=== PATIENT | male | born 1945 | race Caucasian/White ===

== ENCOUNTER 2020-09-27 08:27 | Outpatient (CLI) | payer MEDICARE, BC | END 2020-09-27 08:28 | disposition home or self-care (01) | LOC: CSHWCC 08:27 | PROVIDERS: ATTEND Nurse Practitioner Family | DX: L98.492 Non-pressure chronic ulcer of skin of other sites with fat layer exposed (principal); K94.09 Other complications of colostomy; E78.01 Familial hypercholesterolemia; F32.9 Major depressive disorder, single episode, unspecified; L88 Pyoderma gangrenosum; I10 Essential (primary) hypertension; Z85.46 Personal history of malignant neoplasm of prostate | CPT/HCPCS: 11042; 97139; G0463; 99213 ==

== ENCOUNTER 2020-10-25 14:59 | Outpatient (CLI) | payer MEDICARE, BC | END 2020-10-25 15:00 | disposition home or self-care (01) | LOC: CSHWCC 14:59 | PROVIDERS: ATTEND Nurse Practitioner Family | DX: E78.01 Familial hypercholesterolemia (principal); F32.9 Major depressive disorder, single episode, unspecified; I10 Essential (primary) hypertension; K94.09 Other complications of colostomy; L88 Pyoderma gangrenosum; L98.492 Non-pressure chronic ulcer of skin of other sites with fat layer exposed; Z85.46 Personal history of malignant neoplasm of prostate | CPT/HCPCS: 97139; G0463; 99213 ==

== ENCOUNTER 2020-11-15 12:39 | Outpatient (CLI) | payer MEDICARE, BC | END 2020-11-15 12:40 | disposition home or self-care (01) | LOC: CSHWCC 12:39 | PROVIDERS: ATTEND Nurse Practitioner Family | DX: L98.492 Non-pressure chronic ulcer of skin of other sites with fat layer exposed (principal); F32.9 Major depressive disorder, single episode, unspecified; I10 Essential (primary) hypertension; L88 Pyoderma gangrenosum; K94.09 Other complications of colostomy; Z85.46 Personal history of malignant neoplasm of prostate | CPT/HCPCS: 99213; G0463 ==

== ENCOUNTER 2021-03-07 09:32 | Outpatient (CLI) | payer MEDICARE, BC | END 2021-03-07 09:33 | disposition home or self-care (01) | LOC: CSHWCC 09:32 | PROVIDERS: ATTEND Nurse Practitioner Family | DX: I87.2 Venous insufficiency (chronic) (peripheral) (principal); L98.492 Non-pressure chronic ulcer of skin of other sites with fat layer exposed; L88 Pyoderma gangrenosum; K94.09 Other complications of colostomy; F32.9 Major depressive disorder, single episode, unspecified; E78.01 Familial hypercholesterolemia; I10 Essential (primary) hypertension; W22.8XXS Striking against or struck by other objects, sequela; Z85.46 Personal history of malignant neoplasm of prostate | CPT/HCPCS: 99213; G0463 ==

== ENCOUNTER 2021-05-03 11:09 | Outpatient (CLI) | payer MEDICARE, BC | END 2021-05-03 11:10 | disposition home or self-care (01) | LOC: CSHWCC 11:09 | PROVIDERS: ATTEND Nurse Practitioner Family | DX: L98.492 Non-pressure chronic ulcer of skin of other sites with fat layer exposed (principal); I87.2 Venous insufficiency (chronic) (peripheral); K94.09 Other complications of colostomy; F32.9 Major depressive disorder, single episode, unspecified; L88 Pyoderma gangrenosum; E78.01 Familial hypercholesterolemia; W22.8XXD Striking against or struck by other objects, subsequent encounter; Z85.46 Personal history of malignant neoplasm of prostate | CPT/HCPCS: 97139; G0463; 99213 ==

== ENCOUNTER 2021-06-14 09:54 | Outpatient (CLI) | payer MEDICARE, BC | END 2021-06-14 09:55 | disposition home or self-care (01) | LOC: CSHWCC 09:54 | PROVIDERS: ATTEND Nurse Practitioner Family | DX: L98.492 Non-pressure chronic ulcer of skin of other sites with fat layer exposed (principal); E78.01 Familial hypercholesterolemia; F32.9 Major depressive disorder, single episode, unspecified; I10 Essential (primary) hypertension; I87.2 Venous insufficiency (chronic) (peripheral); K94.09 Other complications of colostomy; L88 Pyoderma gangrenosum; W22.8XXS Striking against or struck by other objects, sequela; Z85.46 Personal history of malignant neoplasm of prostate | CPT/HCPCS: 97139; G0463; 99213 ==

== ENCOUNTER 2021-07-26 14:19 | Outpatient (CLI) | payer MEDICARE, BC | END 2021-07-26 14:20 | disposition home or self-care (01) | LOC: CSHWCC 14:19 | PROVIDERS: ATTEND Nurse Practitioner Family | DX: L98.492 Non-pressure chronic ulcer of skin of other sites with fat layer exposed (principal); E78.01 Familial hypercholesterolemia; F32.9 Major depressive disorder, single episode, unspecified; I10 Essential (primary) hypertension; I87.2 Venous insufficiency (chronic) (peripheral); K94.09 Other complications of colostomy; L88 Pyoderma gangrenosum; W22.8XXS Striking against or struck by other objects, sequela; Z85.46 Personal history of malignant neoplasm of prostate ==

== ENCOUNTER 2021-09-04 13:02 | Outpatient (CLI) | payer MEDICARE, BC | END 2021-09-04 13:03 | disposition home or self-care (01) | LOC: CSHWCC 13:02 | PROVIDERS: ATTEND Nurse Practitioner Family | DX: K94.09 Other complications of colostomy (principal); L98.492 Non-pressure chronic ulcer of skin of other sites with fat layer exposed | CPT/HCPCS: 87070; 87077; 87186; 87205 ==

== ENCOUNTER 2021-10-18 21:53 | Emergency (ER) | payer MEDICARE, BC ==
[~2021-10-18 21:53] MED LIST: Iopamidol 300 61% 100 ML VIAL FS ONE
[2021-10-18 22:17] LABS: #Basophils 0.1 10x3/uL (0.0-0.2); #Eosinphils 0.3 10x3/uL (0.0-0.5); #Monocytes 0.6 10x3/uL (0.0-1.1); #Neutrophils 6.8 10x3/uL (1.5-8.4); %Basophils 0.7 % (0.0-2.0); %Eosinophils 2.5 % (0.0-6.0); %Lymphocytes 21.7 % (18.0-47.0); %Monocytes 6.4 % (0.0-10.0); %Neutrophils 68.3 % (40.0-75.0); Hemoglobin 11.1 g/dL (13.5-17.5); Mean Corpuscular HGB CONC 31.6 g/dL (32.0-36.0); Mean Corpuscular Hemoglobin 32.1 pg (27.0-33.0); Mean Corpuscular Volume 101.4 fl (81.2-95.1); Mean Platelet Volume 8.7 fl (7.4-10.4); Platelet Count 180 10x3/uL (150-450); RBC Distribution Width 14.2 % (11.5-14.5); Red Blood Cell (RBC) Count 3.46 10x6/uL (4.32-5.72)
[2021-10-18 22:27] LABS: PTT 26.3 sec (22.0-33.0); Prothrombin Time 10.7 sec (9.5-12.1)
[2021-10-18 22:29] LABS: ALT (SGPT) 20 U/L (8-55); AST (SGOT) 19 U/L (5-34); Albumin 4.1 g/dL (3.4-4.8); Alkaline Phosphatase 81 U/L (40-110); Anion Gap 13 mmol/L (10-20); BUN (Urea Nitrogen) 39 mg/dL (8.4-25.7); Bilirubin, Total 0.6 mg/dL (0.2-1.2); Calc. Creatinine Clearance 0 mL/min (70-130); Calcium 9.5 mg/dL (7.8-10.44); Carbon Dioxide 26 mmol/L (23-31); Chloride 106 mmol/L (98-107); Globulin 2.3 g/dL (2.4-3.5); Glucose 148 mg/dL (83-110); Protein, Total 6.4 g/dL (5.8-8.1); Sodium 141 mmol/L (136-145)
[2021-10-18] MEDS ORDERED: Silver Nitrate Application 1 EACH ONE (22:43)
[2021-10-18 23:40] LABS: Bilirubin Neg (Negative); Blood, Urine 10 (Negative); Clarity Clear (Clear); Glucose, Urine (Dipstick) Normal (Negative); Ketone, Urine Negative (Negative); Leukocyte Negative (Negative); Nitrite Negative (Negative); Protein, Urine (Dipstick) Negative (Neg-Trace); Urobilinogen Normal mg/dL (Less than 2)
[2021-10-18 23:55] LABS: Bacteria/HPF None Seen HPF (None Seen); RBC/HPF 0-3 HPF (0-3); Squamous Epithelial 0-3 HPF (0-3)
== END 2021-10-19 00:50 | disposition home or self-care (01) ==
LOC: CSHERS 21:53
DX: T83.83XA Hemorrhage due to genitourinary prosthetic devices, implants and grafts, initial encounter (principal); E78.5 Hyperlipidemia, unspecified; I10 Essential (primary) hypertension; Z79.899 Other long term (current) drug therapy
CPT/HCPCS: 74177; 80053; 81003; 81015; 85025; 85610; 85730; Q9967

== ENCOUNTER 2021-11-08 10:49 | Outpatient (CLI) | payer MEDICARE, BC | END 2021-11-08 10:50 | disposition home or self-care (01) | LOC: CSHWCC 10:49 | PROVIDERS: ATTEND Nurse Practitioner Family | DX: K94.09 Other complications of colostomy (principal); L98.492 Non-pressure chronic ulcer of skin of other sites with fat layer exposed | CPT/HCPCS: 97139; G0463; 99213 ==

== ENCOUNTER 2021-12-29 08:10 | Outpatient (CLI) | payer MEDICARE, BC | END 2021-12-29 08:11 | disposition home or self-care (01) | LOC: CSHWCC 08:10 | PROVIDERS: ATTEND Nurse Practitioner Family | DX: K94.09 Other complications of colostomy (principal); L98.492 Non-pressure chronic ulcer of skin of other sites with fat layer exposed | CPT/HCPCS: 87070; 87077; 87186; 87205; 97139; G0463; 99213 ==

== ENCOUNTER 2022-03-03 14:28 | Emergency (ER) | payer MEDICARE, BC ==
[2022-03-03] MEDS ORDERED: Ondansetron PF 4 MG/2 ML Vial ONE (15:19)
[2022-03-03] MEDS ORDERED: Morphine 2 MG/ML VIAL ONE (15:19)
[2022-03-03 15:47] LABS: #Basophils 0.1 10x3/uL (0.0-0.2); #Eosinphils 0.3 10x3/uL (0.0-0.5); #Monocytes 0.6 10x3/uL (0.0-1.1); #Neutrophils 6.2 10x3/uL (1.5-8.4); %Basophils 0.7 % (0.0-2.0); %Lymphocytes 15.9 % (18.0-47.0); %Monocytes 6.6 % (0.0-10.0); %Neutrophils 73.6 % (40.0-75.0); Hemoglobin 10.7 g/dL (13.5-17.5); Mean Corpuscular HGB CONC 31.3 g/dL (32.0-36.0); Mean Corpuscular Hemoglobin 31.5 pg (27.0-33.0); Mean Corpuscular Volume 100.6 fl (81.2-95.1); Mean Platelet Volume 8.9 fl (7.4-10.4); Platelet Count 173 10x3/uL (150-450); RBC Distribution Width 13.5 % (11.5-14.5); White Blood Cell (WBC) Count 8.4 10x3/uL (3.5-10.5)
[2022-03-03 16:04] LABS: ALT (SGPT) 16 U/L (8-55); AST (SGOT) 13 U/L (5-34); Alkaline Phosphatase 90 U/L (40-110); Anion Gap 13 mmol/L (10-20); BUN (Urea Nitrogen) 48 mg/dL (8.4-25.7); Bilirubin, Total 0.7 mg/dL (0.2-1.2); Calc. Creatinine Clearance 0 mL/min (70-130); Carbon Dioxide 25 mmol/L (23-31); Chloride 106 mmol/L (98-107); Estimated GFR 37; Globulin 2.8 g/dL (2.4-3.5); Glucose 110 mg/dL (83-110); Lipase 19 U/L (8-78); Potassium 5.1 mmol/L (3.5-5.1); Protein, Total 6.8 g/dL (5.8-8.1); Sodium 139 mmol/L (136-145)
== END 2022-03-03 17:30 | disposition home or self-care (01) ==
LOC: CSHERS 14:28
DX: K80.20 Calculus of gallbladder without cholecystitis without obstruction (principal); I12.9 Hypertensive chronic kidney disease with stage 1 through stage 4 chronic kidney disease, or unspecified chronic kidney disease; N18.9 Chronic kidney disease, unspecified; N99.528 Other complication of incontinent external stoma of urinary tract; E78.5 Hyperlipidemia, unspecified; M10.9 Gout, unspecified
CPT/HCPCS: 74176; 80053; 83605; 83690; 85025; J2270; 96374; 96375; J2405

== ENCOUNTER 2022-03-22 13:49 | Outpatient (CLI) | payer MEDICARE, BC | END 2022-03-22 13:50 | disposition home or self-care (01) | LOC: CSHWCC 13:49 | PROVIDERS: ATTEND Preventive Medicine Undersea and Hyperbaric Medicine | DX: L98.492 Non-pressure chronic ulcer of skin of other sites with fat layer exposed (principal) | CPT/HCPCS: 97139; G0463; 99213 ==

== ENCOUNTER 2022-07-30 13:09 | Outpatient (CLI) | payer MEDICARE, BC | END 2022-07-30 13:10 | disposition home or self-care (01) | LOC: CSHWCC 13:09 | PROVIDERS: ATTEND Preventive Medicine Undersea and Hyperbaric Medicine | DX: L98.492 Non-pressure chronic ulcer of skin of other sites with fat layer exposed (principal) | CPT/HCPCS: 99213; G0463 ==